=== PATIENT | female | born 1945 | race Caucasian/White ===

== ENCOUNTER 2018-02-12 05:00 | Inpatient (IN) | payer MEDICARE, OTHER ==
[2018-02-11 13:59] LABS: APPEARANCE CLEAR (CLEAR); BACTERIA FEW /hpf (NONE SEEN); BILIRUBIN NEGATIVE (NEGATIVE); COLOR YELLOW (YELLOW); EPITHELIAL CELLS 0-5 /hpf (0-5); GLUCOSE NEGATIVE (NEGATIVE); KETONE NEGATIVE (NEGATIVE); MUCUS <1+ /lpf (NONE SEEN); NITRITE NEGATIVE (NEGATIVE); PROTEIN NEGATIVE (NEGATIVE); RED CELLS - URINE 0-5 /hpf (0-5); UROBILINOGEN NORMAL (NORMAL); WHITE CELLS - URINE RARE /hpf (0-5)
[2018-02-11 14:26] LABS: HEMATOCRIT 38.6 % (36.0-48.0); HEMOGLOBIN 12.9 g/dL (12-16); MCH 33.3 pg (26.0-34.0); MCHC 33.4 g/dL (31.0-37.0); MCV 99.7 fL (80.0-100.0); MEAN PLATELET VOLUME 9.9 fL (7.4-10.4); RBC 3.87 10x6/uL (4.00-5.40); RDW 12.9 % (11.5-14.5); WBC 5.8 10x3/uL (4.8-10.8)
[2018-02-11 14:39] LABS: APTT 33.1 SECONDS (22.8-39.4); INR 0.96 (0.85-1.17); PROTIME 12.3 SECONDS (11.6-15.0)
[2018-02-11 14:41] LABS: ALBUMIN 3.7 g/dL (3.4-5.0); ANION GAP 9.4 mmol/L (8-16); BILIRUBIN - TOTAL 0.34 mg/dL (0.2-1.3); CALCIUM 9.5 mg/dL (8.5-10.1); CARBON DIOXIDE 31.3 mmol/L (21.0-32.0); CREATININE - SERUM 0.8 mg/dL (0.6-1.3); POTASSIUM - SERUM 3.7 mmol/L (3.5-5.1); PROTEIN - SERUM 7.9 g/dL (6.4-8.2)
[~2018-02-12] VITALS: Ht 165.1 cm; Wt 57.0 kg
[2018-02-12] VITALS (49 sets, daily range): BP systolic 90–143; BP diastolic 39–83; BMI 21.3; BMI 22.7
--- NOTE | ~2018-02-12 | HP ---
PATIENT: CONSTANTINE KIRK MEDICAL RECORD: [id number] ACCOUNT: [id number] LOCATION:[facility].CV05 : 43 ADMISSION DATE: 02/12/18 PCP: ANGELA MONROY MD HISTORY AND PHYSICAL EXAMINATION CONSTANTINE Yeh (72yo, F) ID# [id number]. Date/Time02/11/2018 10:98RYTKZ59 1945Service Dept.NPP_[facility] ClinicProviderEDMILENA MONROY MDInsuranceMed Primary: [place]) Insurance # : [id number] Referring Provider Name : SHAHBAZ HARDING Employer Name : RETIRED Med Secondary: [employer] (MEDICARE SUPPLEMENT) Insurance # : [id number] Employer Name : RETIRED Prescription: ESI1 - Member is eligible. Chief Complaint Lung mass Patient's Care Team Referring Provider (): SHAHBAZ HARDING: [address] [place] [address], , [facility] [address] (ERX): [address], [place] [address], , Vitals BP:132/68 sitting R arm 02/11/2018 10:09 amHR:78/reg 02/11/2018 10:09 amHt:5 ft 1 in 02/11/2018 10:07 amWt:132 lbs 02/11/2018 10:07 amBMI:24.9 02/11/2018 10:07 amAllergies Reviewed Allergies CODEINE: HallucinationsIRONLATEXTRAMADOL: ItchingVIBERZIZENPEPMedications Reviewed Medications AMOX/K CLAV TAB 875MGAMOXICILLIN/CLAVULANATE VGKMNDPEJ60/28/15 filledCatalystHealthSolutionsamoxicillin 875 mg-potassium clavulanate 125 mg tablet TK 1 T PO BID08/13/14 filledsurescriptsazithromycin 250 mg tablet TK 2 TS PO AT ONCE TODAY THEN TK 1 T PO ONCE D FOR 4 DAYS10/22/13 filledsurescriptsAZITHROMYCIN TAB 734YT7510/22/13 filledCatalystHealthSolutionsCalciu m 600 + D(3)12/26/11 enteredAlethiea Lucascefdinir 300 mg capsule TK ONE C PO Q 12 H FOR 10 DAYS02/27/13 filledsurescriptsCHOLESTYRAM POW 6UHHNUDYOMLUOXBYB18/18/15 filledCatalystHealthSolutionscholestyramine (with sugar) 4 gram oral powder MIX 4 GRAMS WITH LIQUID AND DRINK BID. DO NOT TAKE WITHIN 2 HOURS OF OTHER LGDRJKUGRKE52/18/18 filledMEDCOciprofloxacin 500 mg tablet TK 1 T PO BID07/17/14 filledsurescriptsCIPROFLOXACN TAB 476ST0309/18/13 filledCatalystHealthSolutionsCIPROFLOXACN TAB 500MGCIPROFLOXACIN HCL07/17/14 filledCatalystHealthSolutionsCLARITHROMYC TAB 500MG ERCLARITHROMYCIN ER12/31/13 filledCatalystHealthSolutionsclarithromycin ER 500 mg tablet,extended release 24 hr TK 2 TS PO D009/02/14 filledsurescriptsCLARITHROMYCIN ER 500 MG AM435509/02/14 filledCatalystHealthSolutionsclindamycin HCl 300 mg /22/13 filledCh[facility] Centerus Numbrs AG SystemsCLOPIDOGREL TAB 67NFKTNZJHZYVZO64/29/15 filled[facility]Health[facility]olutions doxycycline hyclate 100 mg kgkeeq54/22/13 filledCh[facility] CenterThe [facility] Laboratory SystemsESTRACE VAG CRE 0.1MG/GIKGEYKHF04/02/15 filledCatalystHealthSolutionsestradiol 1 mg tablet TK 1 T PO D.11/12/12 filledsurescriptsfamotidine 20 mg tablet TK 1 T PO BID UTD1 filledMEDCOfluocinonide 0.05 % topical eejswmrb12/22/18 filledMEDCOHYDROCO/APAP TAB 10-036CF5608/26/13 filledCatalystHealthSolutionsHYDROcod one 10 mg-acetaminophen 325 mg tablet TK 1 T PO Q 4 H PRN P008/26/13 filledsurescriptsLORAZEPAM TAB 0.5MG05/29/13 filledCatalystHealthSolutionsmeloxicam 7.5 mg yfetal17/12/15 HISTORY AND PHYSICAL [id number] CONSTANTINE KIRK filledsurescriptsmethocarbamol 500 mg /04/15 filledsurescriptsmethylPREDNIS olone 4 mg tablets in a dose pack TK UTD10/20/14 filledsurescriptsmetroNIDAZOLE 500 mg /24/13 filledArgus Health SystemsMOVIPREP SOL11/13/13 filledCatalystHealthSolutionsMoviPrep 100 gram-7.5 gram-2.691 gram oral powder packet UTD11/13/13 filledsurescriptsMucinex D 60 mg-600 mg tablet,extended release TK 1 T PO BID Q TWELVE H008/13/14 filledsurescriptsNITROFUR MAC CAP 100MGNITROFURANTOIN OMTOZIEWTVZNL81/02/15 filledCatalystHealthSolutionsNITROFUR MAC CAP 50MGNITROFURANTOIN CAWBVYLMDICWH95/02/15 filledCatalystHealthSolutionsNITRO FURANTN CAP 100MGNITROFURANTOIN OLMGNZDWDJL14/23/14 filledCatalystHealthSolutionsNI TROFURANTN CAP 100MGNITROFURANTOIN MONOHYDRATE/EYEMQPKLRDLNV14/09/15 filledCatalystHealthSolutionsnitrofurantoin macrocrystal 50 mg wrikhor61/24/15 filledsurescriptsnitrofurantoin monohydrate/macrocrystals 100 mg capsule TK ONE C TWICE DAILY FOR 7 DAYS03/27/14 filledsurescriptspantoprazole 40 mg tablet,delayed release TK 1 T PO QAM07/30/13 filledsurescriptsPANTOPRAZOLE TAB 40MG07/30/13 filledCatalystHealthSolutionsphenazopyridine 200 mg tablet TK 1 T PO QID FOR 3 DAYS03/10/14 filledsurescriptsPoly Hist Forte (doxylamine) 7.5 mg-10 mg fsuatq51/17/15 filledsurescriptsPREMARIN TAB 0.3MG011/27/13 filledCatalystHealthSolutionsPREMARIN TAB 0.0DUGGNRKQEM52/26/14 filledCatalystHealthSolutionsPREMARIN TAB 0.45MG12/11/13 filledCatalystHealthSolutionsPREMARIN TAB 0.8YAIVPCXXSV33/01/15 filledCatalystHealthSolutionsPREMARIN 0.9 MG TABS09/19/14 filledCatalystHealthSolutionsPremarin 0.3 mg tablet TK 1 T PO QD02/11/14 filledsurescriptsPremarin 0.45 mg tablet TK 1 T PO D012/11/13 filledsurescriptsPremarin 0.625 mg /09/12 filledMEDCOPremarin 0.9 mg tablet TK 1 T PO QD01/08/18 filledMEDCOpromethazine 25 mg tablet TK 1 T PO Q 4 TO 6 H PRN N008/26/13 filledsurescriptsPROMETHAZINE TAB 25MG08/26/13 filledCatalystHealthSolutionsSERTRALINE TAB 50MG12/16/13 filledCatalystHealthSolutionssertraline 25 mg /13/12 filledMEDCOsertraline 50 mg tablet TK 1 T PO D012/16/13 filledsurescriptsSMZ/TMP DS TAB 800-2351410/28/13 filledCatalystHealthSolutionssulfamethoxazole 800 mg-trimethoprim 160 mg tablet TK 1 T PO BID10/28/13 filledsurescriptstraMADol 50 mg /05/12 filledMEDCOXanax 0.25 mg tablet Take 1 tablet(s) 3 times a day by oral route.12/26/11 enteredAlethiea LucasProblems Reviewed Problems Coronary arteriosclerosis Gastroesophageal reflux disease Ludwig's esophagus Colitis Biliary dyskinesia Degenerative joint disease involving multiple joints Disorder of rotator cuff Family History Reviewed Family History Father- Cerebrovascular accident - previously recorded as StrokeMother- Problem - lukemiaSocial History Reviewed Social History General HISTORY AND PHYSICAL [id number] CONSTANTINE KIRK 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 Marital status: Exercise level: None Smoking Status: Former smoker (Notes: quit 10 years ago) Alcohol intake: None Is blood transfusion acceptable in an emergency?: Y (Notes: Only from family member) Tobacco-years of use: 30 Surgical History Reviewed Surgical History Cholecystectomy, laparoscopic - 08/26/2013 Shoulder arthroscopy with rotator cuff repair - 12/28/2011 Other - 1969 - Hysterectomy Other - 1967 - Ulcers 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 History (not configured) Past Medical History Reviewed Past Medical History Coronary Artery Disease: Y GERD: Y Heart Disease: Y Joint Pain or Swelling: Y Pain in legs when walking: Y Documents for Discussion Discussed the following documents: PET, SKULL BASE TO MID-THIGH - 01/04/18 SURGICAL PATHOLOGY STUDY - 12/20/17 Notes - LUNG BX BIOPSY, LUNG, CT GUIDANCE (PROC) - 12/20/17 CT, ANGIOGRAM, CHEST, W/WO CONTRAST - 12/10/17 ONCOLOGY CONSULT NOTE - 01/25/18 ONCOLOGY CONSULT NOTE - 01/21/18 ONCOLOGY CONSULT NOTE - [facility] - 01/15/18 ONCOLOGY CONSULT NOTE - [facility] - 01/15/18 Screening None recorded. HPI Lungs/Pleura Mass or Nodule Reported by patient. 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 She reports no fever, no night sweats, no significant weight gain, no signifi cant weight loss, and no exercise intolerance. She reports no dry eyes, no irritation, and no vision change. She reports no difficulty hearing and no ear pain. She reports no frequent nosebleeds and no nose/sinus problems. She reports no sore throat, no b l eeding gums, no snoring, no dry mouth, no mouth ulcers, no oral abnormalities, and no teeth problems. She reports no jugular vein distension and no swollen glands. She reports no chest pain, no arm pain on exertion, no shortness of breath when walking, no shortness of breath when lying down, no palpitations, and no known heart murmur. She reports no cough, no wheezing, no shortness of breath, and no coughing up blood. She HISTORY AND PHYSICAL [id number] YELENACONSTANTINE reports no incontinence, no difficulty urinating, no hematuria, and no increased freq u ency. She reports no muscle aches, no muscle weakness, no arthralgias/joint pain, no back pain, and no swelling in the extremities. She reports no abnormal mole, no jaundice, and no rashes. She reports no loss of consciousness, no weakness, no numbness, n o seizures, no dizziness, and no headaches. She reports no depression, no sleep disturbances, feeling safe in relationship, and no alcohol abuse. She reports no fatigue. She reports no swollen glands and no bruising. She reports no runny nose, no sinus pre ssure, no itching, no hives, and no frequent sneezing. ROS as noted in the HPI Physical Exam Patient is a 72-year-old female. Constitutional: General Appearance well nourished and developed and healthy-appearing. Level of Distress NAD. Ambulation ambulating normally. Cardiovascular: Apical Impulse not displaced or no thrill. Heart Auscultation normal s1 and s2; no murmurs, rubs, or gallops; and RRR. Arterial Pulses no abdominal aorta bruits, femoral bruits, or popliteal bruits and 2+ bilateral, carotid 2+ bilateral, femoral 2+ bilateral, popliteal 2+ bilateral, and dorsalis pedis 2+ bilateral. Edema no edema or varicosities. Lungs: Repiratory Effort no dyspnea. Percussion no hyperresonance or dullness or flatness. Auscultation no wheezing, rhonchi, or ral es / crackles and breathing sounds normal, good air movement, and CTA except as noted. Abdomen: Bowl Sounds normal. Inspection and Palpation no tenderness, guarding, masses, or rebound tenderness and soft and non-distended. Liver non-tender and no hepatomegaly. Spleen non-tender and no splenomegaly. Hernia none palpable. Musculoskeletal System: Gait And Stance normal gait and stance. Digits and Nails normal nails and no cyanosis. Neurologic: Cranial Nerves grossly intact. Reflexes DTRs 2+ bilaterally throughout. Sensation grossly intact. Lymph Nodes: Lymph Nodes no cervical LAD, supraclavicular LAD, axillary LAD, or inguinal LAD. Eyes: Lids and Conjunctivae no discharge or pallor and non-injected. Pupils PERRLA. Cornea grossly intact. EOM EOMI. Lens clear. Sclera non-icteric. Neck: Neck no masses, enlarged lymph nodes, or carotid bruits and supple and trachea midline. Thyroid no enlargement or nodules and non-tender. Skin: Inspection and Palpation no rash, lesions, ulcers, jaundice, or abnormal nevi. Assessment / Plan Non-small cell carcinoma left upper lobe 1. Non-small cell lung cancer - Left C34.90: Malignant neoplasm of unspecified part of unspecified bronchus or lung C34.12: Malignant neoplasm of upper lobe, left bronchus or lung Discussion Notes Agree with Dr. Cabrera she would benefit from left upper lobe resection. HISTORY AND PHYSICAL [id number] YELENACONSTANTINE ROME She has no symptoms of cardiac disease she had a stent in 2009 She has no cough shortness of breath and has no physical limitations concerning exercise I have discussed her disease process with her and her in detail as well as the alternative methods of treatment. We discussed left upper lobe resection including the expected benefits and risk which include bleeding, infection, stroke, , and the imponderables .She understands all of the above and wishes to proceed with planned surgery. ANGELA MONROY MD CC: [id number] DICTATION DATE: 02/11/18 1000 LAP MACHINE TENDER: HUNG 02/13/18 1242 ADM IN [facility] [address] [place] [address]
--- NOTE | ~2018-02-12 | OP ---
PATIENT NAME: CONSTANTINE KIRK MEDICAL RECORD: [id number] :41 LOCATION:[facility] D.CV05 ADMISSION DATE:02/12/18 SURGEON: ANGELA ADAMS MD DATE OF OPERATION: 02/12/2018 SURGEON: Angela Adams MD ANESTHESIA: General endotracheal, Graham Savage MD OPERATIONS PERFORMED: 1. Left upper lobectomy. 2. Left radical mediastinal lymphadenectomy. 3. Flexible fiberoptic bronchoscopy. PREOPERATIVE DIAGNOSIS: Non-small cell carcinoma, left upper lobe. POSTOPERATIVE DIAGNOSIS: Non-small cell carcinoma, left upper lobe. INDICATION FOR OPERATION: Non-small cell carcinoma, left upper lobe. FINDINGS AT OPERATION: Non-small cell carcinoma, left upper lobe. ESTIMATED BLOOD LOSS: 150 mL. DESCRIPTION OF PROCEDURE: After informed consent, adequate preoperative medication, and evaluation, the patient was brought to the operating room and placed on the table in supine position. After induction of general endotracheal anesthesia, application of appropriate monitoring devices, placement of a double lumen tube, and flexible fiberoptic bronchoscopy, the patient was turned in a right lateral decubitus position. Left chest was prepped and draped in sterile field utilizing Betadine scrub, alcohol, and Betadine solution. Betadine-impregnated drape was also used. No endobronchial lesions were noted on bronchoscopy. A posterolateral thoracotomy incision was made on the left. Dissection was carried down to the fascia. Hemostasis was maintained with electrocautery. The fifth interspace was opened and the lung was examined. There was no other pathology other than the lesion in the superior segment of the lingula. The upper lobe had a couple of small adhesions that were lysed with electrocautery. The hilum was then circumferentially incised. Dissection was carried down to the pulmonary artery and the pulmonary vein. The pulmonary vein was isolated. The pulmonary artery branches to the upper lobe were isolated and divided utilizing 2-0 silk and 6-0 Prolene suture ligatures. There were 4 vessels going to the upper lobe that were taken sequentially. Attention was then turned towards the pulmonary vein. This was divided utilizing an Endo vascular PENG stapler. Attention was then turned towards the fissures. The fissures were incomplete. The fissures were partially developed anteriorly and posteriorly utilizing an Endo-PENG stapler. Dissection was then carried around the upper lobe bronchus and this was surrounded with a TA 34.8 stapler and closed. Testing demonstrated good ventilation of the lower lobe. This was fired and the bronchus was divided. Additional dissection was carried out. There were 2 arteries to the lingula. These were also divided with 2-0 silk and 6-0 Prolene suture ligatures. The fissure was then completed and the specimen sent to pathology. The patient then underwent a radical mediastinal lymphadenectomy. There were no nodes at level 6. There were nodes at level 5, 4, and 8 that were OPERATIVE REPORT [id number] CONSTANTINE KIRK sent separately. There were also nodes at level 10, sent separately. Chest was irrigated with copious amounts of antibiotic solution and normal saline. Two #28 chest tubes were placed, one anteriorly and superiorly, one posteriorly and inferiorly. Chest was again irrigated. Instrument count and sponge count were correct times 2. Chest was closed in layers utilizing #2 Vicryl pericostal sutures, #1 Vicryl on the latissimus, 2-0 Vicryl on the subcutaneous tissue, and skin was approximated with 3-0 subcuticular Vicryl. Sterile dressings were applied. The patient tolerated the procedure well and was transferred to a supine position. The patient then underwent flexible fiberoptic bronchoscopy. There were no endobronchial lesions and good closure of the upper lobe bronchus. The patient was then awakened, extubated, and taken to the cardiovascular ICU in satisfactory condition. TRANSINT:[id number] Voice Confirmation ID: [id number] DOCUMENT ID: [id number] ANGELA ADAMS MD CC: [id number] DICTATION DATE: 02/12/18 1238 QUICK MIXER OPERATOR: 02/12/18 1407 ADM IN [facility] [address] [place] [address]
--- NOTE | ~2018-02-12 | MORECARE ---
CASE MANAGEMENT DISCHARGE SUMMARY PATIENT: CONSTANTINE KIRK UNIT: [id number] ADM DATE: 02/12/18 AGE: 72 : 43 SEX: F ROOM/BED: [facility] AUTHOR: JORI MIRAMONTES PHYSICIAN: REFERRING PHYSICIAN: ANGELA MONROY MD DATE OF SERVICE: 02/15/18 Discharge Plan Patient Name: CONSTANTINE KIRK [facility] [facility] 1945 Planned Disposition: Home Anticipated Discharge Date: Discharge Date: Expected LOS: Initial Reviewer: [email or web address] Initial Review Date: 02/12/2018 Generated: 02/15/18 6:25 pm Patient Name: CONSTANTINE KIRK Page 30518 at 1726 All edits/amendments must be made on the electronic document DICTATION DATE: 02/15/181724 PHP LAMP DEVELOPER: HUNG 02/15/181724 RPT#: [id number] DC DATE: STATUS: ADM IN [facility] [address] [place] [address] END OF REPORT
--- NOTE | ~2018-02-12 | MORECARE ---
CASE MANAGEMENT DISCHARGE SUMMARY PATIENT: CONSTANTINE KIRK UNIT: [id number] ADM DATE: 02/12/18 AGE: 72 : 43 SEX: F [facility] AUTHOR: FE,DOC PHYSICIAN: REFERRING PHYSICIAN: ANGELA MONROY MD DATE OF SERVICE: 02/19/18 Discharge Plan Patient Name: CONSTANTINE KIRK Facility: [facility]:[place] : 1945 Planned Disposition: Home Anticipated Discharge Date: Discharge Date: 02/19/2018 Expected LOS: Initial Reviewer: [email or web address] Initial Review Date: 02/12/2018 Generated: 02/19/18 11:13 am Comments DCP- Discharge Planning Updated by [email or web address]: Adrianna Markham on 02/19/18 9:[address] Patient Name: CONSTANTINE KIRK Encounter No: [id number] : 1945 Primary Insurance: MEDICARE A & B Anticipated DC Date: Planned Disposition: Home External Planned Provider: : CARRIE WADE @ [facility] DCP follow-up note: Patient and family in agreement with discharge plan. No changes to plan. Case management will follow and assist as needed. Adrianna Markham DCP- Discharge Planning Updated by [email or web address]: Adrianna Markham on 02/15/18 4:[address] Patient Name: CONSTANTINE KIRK Admission Status: Elective Accout number: [id number] Admission Date: 02-12-2018 : 1945 Admission Diagnosis:MALIGNANT NEOPLASM OF UPPER LOBE, LEFT BRONCHUS OR LUNG Attending: ANGELA MONROY Current LOS: 3 Anticipated DC Date: Planned Disposition: Home Primary Insurance: MEDICARE A & B Discharge Planning Comments: CM met with patient at bedside after obtaining verbal consent. Patient states she plans on returning home after discharge with her . Patient states she will have family transport him home via private vehicle. Patient denies any discharge needs at this time. CM will continue to follow and assist as needed for discharge planning / needs. Marketing Project Lead: Adrianna Markham DCPIA - Discharge Planning Initial Assessment Updated by [email or web address]: Adrianna Markham on 02/15/18 5:27 pm * Is the patient Alert and Oriented? Yes * How many steps to enter\exit or inside your home? * PCP [facility] * Pharmacy [facility] * Preadmission Environment Home with Family * ADLs Independent * Equipment None * List name and contact numbers for known caregivers / representatives who currently or will assist patient after discharge: BHUMI KIRK [phone] * Verbal permission to speak to the caregivers and representatives has been obtained from the patient. Yes * Community resources currently utilized None * Additional services required to return to the preadmission environment? No * Can the patient safely return to the preadmission environment? Yes * Has this patient been hospitalized within the prior 30 days at any hospital? No Coverage Notice Reviewer: [email or web address] Juliano Markham Notice Issued Date-Time: 02/19/2018 9:50 Notice Type: IM Discharge Notice Notice Delivered To: Patient Relationship to Patient: Self Hydroelectric Component Machinist Name: Delivery Method: HAND - Hand Delivered Ashley Days: Prior Verbal Notification: Recipient Understood Notice: Yes Recipient Signature: Yes Med Rec Note Co-signed by Attending: Coverage Notice Comment: Last DP export: 02/15/18 4:34 Patient Name: CONSTANTINE KIRK Page 38437 at 1013 All edits/amendments must be made on the electronic document DICTATION DATE: 02/19/18 1013 ACCESS CONTROL SPECIALIST: HUNG 02/19/18 1013 RPT#: [id number] DC DATE:02/19/18 STATUS: DIS IN [facility] [address] [place] [address] END OF REPORT
--- NOTE | ~2018-02-12 | MORECARE ---
CASE MANAGEMENT DISCHARGE SUMMARY PATIENT: CONSTANTINE KIRK UNIT: [id number] ADM DATE: 02/12/18 AGE: 72 : 43 SEX: F [facility] AUTHOR: FE,DOC PHYSICIAN: REFERRING PHYSICIAN: ANGELA MONROY MD DATE OF SERVICE: 02/15/18 Discharge Plan Patient Name: CONSTANTINE KIRK Facility: [facility]:[place] : 1945 Planned Disposition: Home Anticipated Discharge Date: Discharge Date: Expected LOS: Initial Reviewer: [email or web address] Initial Review Date: 02/12/2018 Generated: 02/15/18 6:34 pm Comments DCP- Discharge Planning Updated by [email or web address]: Adrianna Markham on 02/15/18 4:[address] Patient Name: CONSTANTINE KIRK Admission Status: Elective Accout number: [id number] Admission Date: 02-12-2018 : 1945 Admission Diagnosis:MALIGNANT NEOPLASM OF UPPER LOBE, LEFT BRONCHUS OR LUNG Attending: ANGELA MONROY Current LOS: 3 Anticipated DC Date: Planned Disposition: Home Primary Insurance: MEDICARE A & B Discharge Planning Comments: CM met with patient at bedside after obtaining verbal consent. Patient states she plans on returning home after discharge with her . Patient states she will have family transport him home via private vehicle. Patient denies any discharge needs at this time. CM will continue to follow and assist as needed for discharge planning / needs. Hearing Aid Repairer: Adrianna Markham DCPIA - Discharge Planning Initial Assessment Updated by [id number]: Adrianna Markham on 02/15/18 5:27 pm * Is the patient Alert and Oriented? Yes * How many steps to enter\exit or inside your home? * PCP [facility] * Pharmacy [facility] * Preadmission Environment Home with Family * ADLs Independent * Equipment None * List name and contact numbers for known caregivers / representatives who currently or will assist patient after discharge: BHUMI KIRK [phone] * Verbal permission to speak to the caregivers and representatives has been obtained from the patient. Yes * Community resources currently utilized None * Additional services required to return to the preadmission environment? No * Can the patient safely return to the preadmission environment? Yes * Has this patient been hospitalized within the prior 30 days at any hospital? No Last DP export: 02/15/18 4:25 Patient Name: CONSTANTINE KIRK Page 40853 at 1735 All edits/amendments must be made on the electronic document DICTATION DATE: 02/15/181733 SCULPTURE CONSERVATOR: HUNG 02/15/181733 RPT#: [id number] DC DATE: STATUS: ADM IN [facility] [address] [place] [address] END OF REPORT
[~2018-02-12 05:00] MED LIST: ASPIRIN EC81 M1 PO; BIOTIN5 MG PO; CALCIUM 600 +1 EAC3 PO; HYDROCODONE-APA1 TAB PO; OSTEO BI-FLEX1 EAC1 PO; PEPCID AC20 MG PO; PHENERGAN25 M1 PO; PLAVIX75 MG PO; PREMARIN0.3 MG PO; PREMARIN0.9 MG PO; TUMERIC PO; VITAMIN D31000 UNIT; VITAMIN D31000 UNIT PO; ZOLOFT50 MG PO
[2018-02-13] VITALS (71 sets, daily range): BP systolic 90–132; BP diastolic 38–62; Ht 165.1 cm; Wt 57.0 kg
[2018-02-13 06:20] LABS: HEMATOCRIT 32.9 % (36.0-48.0); HEMOGLOBIN 10.9 g/dL (12-16); MCH 32.7 pg (26.0-34.0); MCHC 33.1 g/dL (31.0-37.0); MCV 98.8 fL (80.0-100.0); MEAN PLATELET VOLUME 10.1 fL (7.4-10.4); RBC 3.33 10x6/uL (4.00-5.40); RDW 13.1 % (11.5-14.5)
[2018-02-13 06:21] LABS: WBC 11.4 10x3/uL (4.8-10.8)
[2018-02-13 06:46] LABS: BILIRUBIN - TOTAL 0.45 mg/dL (0.2-1.3); CALCIUM 7.5 mg/dL (8.5-10.1); CARBON DIOXIDE 26.3 mmol/L (21.0-32.0); CREATININE - SERUM 0.8 mg/dL (0.6-1.3); PROTEIN - SERUM 6.1 g/dL (6.4-8.2)
[2018-02-13 06:53] LABS: ALBUMIN 2.5 g/dL (3.4-5.0); ANION GAP 12.1 mmol/L (8-16)
[2018-02-13 06:54] LABS: POTASSIUM - SERUM 4.4 mmol/L (3.5-5.1)
[2018-02-14] VITALS (26 sets, daily range): BP systolic 105–136; BP diastolic 43–66
[2018-02-14 06:23] LABS: HEMATOCRIT 30.9 % (36.0-48.0); HEMOGLOBIN 9.9 g/dL (12-16); MCH 32.5 pg (26.0-34.0); MCV 101.3 fL (80.0-100.0); MEAN PLATELET VOLUME 9.9 fL (7.4-10.4); RBC 3.05 10x6/uL (4.00-5.40); RDW 13.2 % (11.5-14.5)
[2018-02-14 07:09] LABS: ALBUMIN 2.3 g/dL (3.4-5.0); ALKALINE PHOSPHATASE 39 U/L (46-116); ALT (SGPT) 17 U/L (10-68); BILIRUBIN - TOTAL 0.42 mg/dL (0.2-1.3); CALCIUM 7.7 mg/dL (8.5-10.1); CARBON DIOXIDE 28.1 mmol/L (21.0-32.0); CHLORIDE - SERUM 101 mmol/L (98-107); CREATININE - SERUM 0.6 mg/dL (0.6-1.3); GLUCOSE 99 mg/dL (74-106); POTASSIUM - SERUM 3.9 mmol/L (3.5-5.1); PROTEIN - SERUM 5.8 g/dL (6.4-8.2); SODIUM 136 mmol/L (136-145); eGFR NON AFRICAN AMERICAN > 90 mL/min (90-120)
[2018-02-14 07:10] LABS: CALC OSMOLALITY 269 mosm/kg (275-300); UREA NITROGEN 8 mg/dL (7-18)
[2018-02-15] VITALS (24 sets, daily range): BP systolic 106–142; BP diastolic 44–86
[2018-02-15 06:14] LABS: HEMATOCRIT 31.2 % (36.0-48.0); HEMOGLOBIN 10.1 g/dL (12-16); MCH 32.5 pg (26.0-34.0); MCHC 32.4 g/dL (31.0-37.0); MCV 100.3 fL (80.0-100.0); MEAN PLATELET VOLUME 10.1 fL (7.4-10.4); RBC 3.11 10x6/uL (4.00-5.40); RDW 12.9 % (11.5-14.5)
[2018-02-15 06:33] LABS: ALBUMIN 2.3 g/dL (3.4-5.0); ALKALINE PHOSPHATASE 42 U/L (46-116); ALT (SGPT) 13 U/L (10-68); CALC OSMOLALITY 271 mosm/kg (275-300); CALCIUM 7.9 mg/dL (8.5-10.1); CARBON DIOXIDE 29.5 mmol/L (21.0-32.0); CHLORIDE - SERUM 102 mmol/L (98-107); CREATININE - SERUM 0.6 mg/dL (0.6-1.3); GLUCOSE 103 mg/dL (74-106); POTASSIUM - SERUM 3.8 mmol/L (3.5-5.1); PROTEIN - SERUM 6.1 g/dL (6.4-8.2); SODIUM 137 mmol/L (136-145); UREA NITROGEN 6 mg/dL (7-18); eGFR NON AFRICAN AMERICAN > 90 mL/min (90-120)
[2018-02-16] VITALS (25 sets, daily range): BP systolic 108–141; BP diastolic 46–63
[2018-02-17] VITALS (24 sets, daily range): BP systolic 96–137; BP diastolic 42–71
[2018-02-18] VITALS (24 sets, daily range): BP systolic 123–157; BP diastolic 50–76
[2018-02-18 07:02] LABS: BASOPHILS 0.2 % (0-2); CALC OSMOLALITY 277 mosm/kg (275-300); CALCIUM 8.2 mg/dL (8.5-10.1); CARBON DIOXIDE 28.6 mmol/L (21.0-32.0); CHLORIDE - SERUM 102 mmol/L (98-107); CREATININE - SERUM 0.6 mg/dL (0.6-1.3); EOSINOPHILS 3.3 % (0-7); GLUCOSE 105 mg/dL (74-106); HEMATOCRIT 32.2 % (36.0-48.0); HEMOGLOBIN 10.6 g/dL (12-16); LYMPHOCYTES 24.3 % (15-50); MCH 32.6 pg (26.0-34.0); MCHC 32.9 g/dL (31.0-37.0); MCV 99.1 fL (80.0-100.0); MEAN PLATELET VOLUME 9.9 fL (7.4-10.4); MONOCYTES 11.3 % (2-11); NEUTROPHILS 59.9 % (40-80); POTASSIUM - SERUM 3.5 mmol/L (3.5-5.1); RBC 3.25 10x6/uL (4.00-5.40); RDW 12.4 % (11.5-14.5); SODIUM 140 mmol/L (136-145); UREA NITROGEN 9 mg/dL (7-18); WBC 5.2 10x3/uL (4.8-10.8); eGFR NON AFRICAN AMERICAN > 90 mL/min (90-120)
[2018-02-18 07:05] LABS: PLATELET COUNT 310 10x3/uL (130-400)
[2018-02-19] VITALS (10 sets, daily range): BP systolic 137–157; BP diastolic 71–84
[2018-02-19 06:37] LABS: BASOPHILS 0.1 % (0-2); EOSINOPHILS 3.2 % (0-7); HEMOGLOBIN 10.9 g/dL (12-16); IMMATURE GRANULOCYTES 0.9 % (0-5); LYMPHOCYTES 18.7 % (15-50); MCH 32.6 pg (26.0-34.0); MCV 98.8 fL (80.0-100.0); MEAN PLATELET VOLUME 9.5 fL (7.4-10.4); MONOCYTES 12.2 % (2-11); NEUTROPHILS 64.9 % (40-80); PLATELET COUNT 337 10x3/uL (130-400); RBC 3.34 10x6/uL (4.00-5.40); RDW 12.5 % (11.5-14.5)
[2018-02-19 07:31] LABS: CALC OSMOLALITY 276 mosm/kg (275-300); CALCIUM 8.2 mg/dL (8.5-10.1); CARBON DIOXIDE 28.8 mmol/L (21.0-32.0); CHLORIDE - SERUM 101 mmol/L (98-107); CREATININE - SERUM 0.6 mg/dL (0.6-1.3); GLUCOSE 122 mg/dL (74-106); POTASSIUM - SERUM 3.4 mmol/L (3.5-5.1); SODIUM 139 mmol/L (136-145); UREA NITROGEN 8 mg/dL (7-18); eGFR NON AFRICAN AMERICAN > 90 mL/min (90-120)
[2018-02-19] MEDS ORDERED: LOPRESSOR25 MG PO (08:28)
[2018-02-19] MEDS ORDERED: MUCINEX600 MG PO (08:29)
[2018-02-19] MEDS ORDERED: ASPIRIN EC81 M1 PO (08:31)
[2018-02-19] MEDS ORDERED: HYDROCODON-ACE1 EAC7 PO (08:36)
== END 2018-02-19 09:45 | disposition home or self-care (01) | DRG 164 ==
LOC: D.CVICU 05:00 → D.SDCHOLD 05:00 → D.CVICU 08:44
PROVIDERS: Internal Medicine Cardiovascular Disease; Thoracic Surgery (Cardiothoracic Vascular Surgery)
PROC: 0BJ08ZZ Inspection of Tracheobronchial Tree, Via Natural or Artificial Opening Endoscopic (ICD-10-PCS; 2018-02-12)
PROC: 0BTG0ZZ Resection of Left Upper Lung Lobe, Open Approach (ICD-10-PCS; principal; 2018-02-12 07:30)
PROC: 07T70ZZ Resection of Thorax Lymphatic, Open Approach (ICD-10-PCS; 2018-02-12 07:30)
DX: C34.12 Malignant neoplasm of upper lobe, left bronchus or lung (principal); J95.812 Postprocedural air leak; I25.10 Atherosclerotic heart disease of native coronary artery without angina pectoris; K21.9 Gastro-esophageal reflux disease without esophagitis; K22.70 Barrett's esophagus without dysplasia; K82.8 Other specified diseases of gallbladder; K52.9 Noninfective gastroenteritis and colitis, unspecified; Z87.891 Personal history of nicotine dependence

== ENCOUNTER → 2018-03-07 09:02 | Outpatient (CLI) | payer MEDICARE, OTHER ==
[2018-02-13 12:29] VITALS: BMI 22.9
[~2018-03-07 09:02] MED LIST changes: +HYDROCODON-ACE1 EAC7 PO; +LOPRESSOR25 MG PO; +MUCINEX600 MG PO
== END | disposition home or self-care (01) ==
LOC: D.RAD 09:02
DX: C34.90 Malignant neoplasm of unspecified part of unspecified bronchus or lung (principal)

== ENCOUNTER 2018-09-17 12:21 | Emergency (ER) | payer MEDICARE, OTHER ==
[~2018-09-17] VITALS: Ht 165.1 cm; Wt 56.4 kg
[2018-09-17 12:35] VITALS: Ht 165.1 cm; Wt 56.4 kg
[2018-09-17] MEDS ORDERED: ASCORBIC ACID500 MG PO (12:37)
[2018-09-17 13:29] LABS: BASOPHILS 0.2 % (0-2); EOSINOPHILS 3.5 % (0-7); HEMOGLOBIN 12.2 g/dL (12-16); LYMPHOCYTES 32.4 % (15-50); MCH 31.1 pg (26.0-34.0); MCHC 33.9 g/dL (31.0-37.0); MCV 91.8 fL (80.0-100.0); NEUTROPHILS 49.9 % (40-80); RBC 3.92 10x6/uL (4.00-5.40); WBC 4.6 10x3/uL (4.8-10.8)
[2018-09-17 13:33] LABS: PLATELET COUNT 248 10x3/uL (130-400)
[2018-09-17 13:37] LABS: ALBUMIN 3.7 g/dL (3.4-5.0); ALKALINE PHOSPHATASE 75 U/L (46-116); ALT (SGPT) 23 U/L (10-68); BILIRUBIN - TOTAL 0.32 mg/dL (0.2-1.3); CALC OSMOLALITY 282 mosm/kg (275-300); CALCIUM 9.2 mg/dL (8.5-10.1); CARBON DIOXIDE 30.5 mmol/L (21.0-32.0); CHLORIDE - SERUM 106 mmol/L (98-107); CREATININE - SERUM 0.8 mg/dL (0.6-1.3); GLUCOSE 86 mg/dL (74-106); PROTEIN - SERUM 7.3 g/dL (6.4-8.2); SODIUM 142 mmol/L (136-145); UREA NITROGEN 14 mg/dL (7-18); eGFR NON AFRICAN AMERICAN 74 mL/min (90-120)
[2018-09-17 13:48] LABS: CKMB 0.9 U/L (0.0-3.6); CREATINE KINASE 63 UL (21-215); TROPONIN-I < 0.017 ng/mL (0.000-0.060)
[2018-09-17 15:21] LABS: APPEARANCE CLEAR (CLEAR); BILIRUBIN NEGATIVE (NEGATIVE); COLOR YELLOW (YELLOW); GLUCOSE NEGATIVE (NEGATIVE); KETONE NEGATIVE (NEGATIVE); NITRITE NEGATIVE (NEGATIVE); PROTEIN NEGATIVE (NEGATIVE); UROBILINOGEN NORMAL (NORMAL)
[2018-09-17 15:22] LABS: BACTERIA FEW /hpf (NONE SEEN); RED CELLS - URINE 0-5 /hpf (0-5); WHITE CELLS - URINE 0-5 /hpf (0-5)
[2018-09-17] MEDS ORDERED: KEFLEX500 MG PO (16:13)
[2018-09-17 16:55] VITALS: BP 124/85
== END 2018-09-17 17:22 | disposition home or self-care (01) ==
LOC: D.ER 12:21
PROVIDERS: Family Medicine
DX: N39.0 Urinary tract infection, site not specified (principal); R55 Syncope and collapse; R53.1 Weakness

== ENCOUNTER → 2018-10-16 10:03 | Outpatient (CLI) | payer MEDICARE, OTHER ==
[2018-09-17 12:35] VITALS: BMI 20.6
[~2018-10-16 10:03] MED LIST changes: +ASCORBIC ACID500 MG PO; +KEFLEX500 MG PO
--- NOTE | 2018-10-22 09:53 | ST ---
PATIENT:CONSTANTINE KIRK MEDICAL RECORD: [id number] SEX: F LOCATION:[facility] ORDER #: ADMISSION DATE: 10/16/18 AGE OF PATIENT: 73 REFERRING PHYSICIAN: INTERPRETING PHYSICIAN: LEONARDA GARCIA MD DATE OF SERVICE: 10/16/2018 INDICATION: Angina, coronary artery disease, and shortness of breath. She was exercised on standard Lexiscan protocol with 33 mCi of sestamibi injected at peak stress, 11 mCi used previously for rest images. FINDINGS: Gated SPECT reveals a preserved ejection fraction at 76% with good wall motioning and thickening and brightening throughout all segments. SPECT imaging Cardiolite was used as myocardial perfusion agent. There is reversibility anteriorly and apically. This includes the basal, mid apical, anterior segments as well as the apex itself. The degree of myocardium of reversibility is mild to moderate. The amount of myocardium involved is moderate. OVERALL IMPRESSION: 1. This is an intermediate risk abnormal nuclear stress test, reversibility anteroapically. 2. Gated SPECT reveals preserved ejection fraction greater than 70% in this patient with ongoing symptomatology, the current scan does suggest presence of hemodynamically significant coronary artery disease. Due to the amount of myocardium at risk, we would proceed with coronary angiography as followup study. TRANSINT:[id number] Voice Confirmation ID: [id number] DOCUMENT ID: [id number] LEONARDA GARCIA MD at 0953 CC: TODD CONNELL [id number] DICTATION DATE: 10/18/18 1328 NURSE INSTRUCTOR: 10/19/18 0052 DEP CLI 10/16/18 [place] [id number] [place] [id number]
--- NOTE | 2018-10-22 09:53 | EC ---
PATIENT:CONSTANTINE KIRK DATE OF SERVICE: 10/16/18 SEX: F MEDICAL RECORD: [id number] DATE OF : 41 [facility] AGE OF PATIENT: 73 ADMISSION DATE: 10/16/18 REFERRING PHYSICIAN: INTERPRETING PHYSICIAN: LEONARDA ZABALA MD ECHOCARDIOGRAM REPORT ECHO CHARGES 4 ECHO COMPLETE Date: 10/16/18 CLINICAL DIAGNOSIS: CAD/DYSPNEA ON EXERTION ECHOCARDIOGRAPHIC MEASUREMENTS (adult normal given) AC root (d.<3.7cm) 3.1 cm LV Septum d (<1.2 cm> 1.2 cm Valve Excursion 1.4 cm LV Septum (systole) 1.4 cm Left Atria (s.<4.0cm> 3.0 cm LVPW d(<1.2cm) 1.2 cm RV (d.<2.3cm) 3.0 cm LVPW (sytole) 1.4 cm LV diastole(<5.6CM) 4.9 cm MV E-F(>70mm/sec) cm LV systole 3.4 cm LVOT Diameter 1.8 cm MV exc.(>10mm) 1.4 cm Est.ejection fraction (50-75%) % DOPPLER: LVIT cm/sec A 113 cm/sec E 104 cm/sec LA cm/sec RVSP 54 mmHg LVOT 120 cm/sec AOP1/2T m/s Asc. Ao 153 cm/sec RVOT 51 cm/sec RA cm/sec PA 103 cm/sec AV Gradient Peak 9.30 mmHg AV Mean 4.60 mmHg AV Area 2.3 cm MV Gradient Peak 5.50 mmHg MV Mean 2.59 mmHg MV Area cm COMMENTS: Denture Contour Wire Specialist: Michele DEMPSEY Radio Tester: 1 Dr. Zabala TAPE# PACS Pericardial Effusion N DATE OF SERVICE: 10/16/2018 ECHOCARDIOGRAM DATE OF SERVICE: 10/16/2018 FINDINGS: 1. Left ventricular chamber size is within normal limits. Left ventricular systolic function is normal. Overall ejection fraction 60% to 65%. 2. Left atrium, right atrium, and right ventricle chamber sizes are within ECHOCARDIOGRAM REPORT [id number] CONSTANTINE KIRK normal limits. 3. Valvular structures have normal structure and motion. 4. Doppler interrogation reveals [id number] mitral regurgitation, mild tricuspid regurgitation, no other valvular insufficiency or stenosis. Pulmonary systolic pressure is elevated estimated at 54 mmHg. 5. No evidence of pericardial effusion or left ventricular thrombus. TRANSINT:[id number] Voice Confirmation ID: [id number] DOCUMENT ID: [id number] LEONARDA ZABALA MD at 0953 CC: [id number] DICTATION DATE: 10/17/18 1249 CUSTOMER SERVICE CONSULTANT: 10/17/18 1311 DEP CLI 10/16/18 [place] [id number]
== END | disposition home or self-care (01) ==
LOC: D.HCCARDIO 10:03
PROVIDERS: ATTEND Internal Medicine Interventional Cardiology
DX: I25.10 Atherosclerotic heart disease of native coronary artery without angina pectoris (principal)

== ENCOUNTER 2018-11-04 09:22 | Outpatient (CLI) | payer MEDICARE, OTHER ==
[~2018-11-04] VITALS: Ht 154.9 cm; Wt 55.9 kg
--- NOTE | ~2018-11-04 | HEMODYNAMI ---
PATIENT:CONSTANTINE KIRK MEDICAL RECORD: [id number] : 41 LOCATION:D[facility] ADMISSION DATE: 11/04/18 Generatedon:11/04/201813:15 Patient name: CONSTANTINE KIRK Patient #: [id number] : 1945 Date of study: 11/04/2018 Page: Of Hemodynamic Procedure Report Patient Data Patient Demographics Procedure consent was obtained First Name: CONSTANTINE Gender: Female Last Name: YELENA : 1945 [facility] Initial: LATRICIA Age: 73 year(s) Patient #: [id number] Race: SSN: [id number] Additional ID: [id number] Contact details [address]: [address] [place] [address] State: [place] City: [place] Zip code: [address] Past Medical History Performed procedures and imaging results Date Procedure Procedure Results Comments 10/16/2018 Stress testing Indeterminant with SPECT MPI Admission Admission Data Admission Date: 11/04/2018 Admission Time: 9:22 Arrival Date: 11/04/2018 Arrival Time: 0:00 Admit Source: Other Insurance Payor: Private health insurance, Medicare [facility] #: [id number] Height (in.): 60.63 BSA: 1.52 (m2) Height (cm.): 154 BMI: 23.19 (kg/m2) Weight (lbs.): 121.25 Weight (kg.): 55 Lab Results Lab Result Date: 11/04/2018 Lab Result Time: 9:40 Biochemistry Name Units Result Min Max BUN mg/dl 15 --(--*-)-- 7 18 Creatinine mg/dl 0.8 --(-*--)-- 0.6 1.3 CBC Name Units Result Min Max Hematocrit % 38.4 *-(----)-- 42 54 Hemoglobin g/dl 13.1 -*(----)-- 13.5 17.5 Procedure Procedure Types Cath Procedure Diagnostic Procedure LHC LHC w/Coronaries PCI Procedure Coronary Stent Coronary Stent Initial Procedure Description Procedure Date Procedure Date: 11/04/2018 Procedure Start Time: 13:00 Procedure End Time: 13:14 Procedure Staff Name Function Fam Zabala MD Performing Physician Adalberto Shukla RT Monitor Juan Diego Rodríguez RT Scrub Twan Belcher RN Nurse Indication CAD Angina Dyspnea with exertion Procedure Data Cath Procedure Fluoroscopy Diagnostic fluoroscopy Total fluoroscopy Time: 2.4 time: 2.4 min min Diagnostic fluoroscopy Total fluoroscopy dose: 230 dose: 230 mGy mGy Contrast Material Contrast Material Type Amount (ml) Isovue 300 69 Entry Location Entry Primary Successful Side Size Upsize Upsize Entry Closure Lopes ccessful Closure Location (Fr) 1 (Fr) 2 (Fr) Remarks Device Remarks Radial Right 6 Fr Mechanical artery Short Compression Estimated blood loss: 20 ml Diagnostic catheters Device Type Used For End Catheter Placement DIAGNOSTIC Olcott 110cm 5 Procedure Fr catheter ([id number]) Procedure Medications Medication Administration Route Dosage Oxygen etCO2 Nasal cannula 2 l/min Lidocaine 2% added to field 20 Heparin Flush Bag added to field 2 bags (1000units/500ml NS) 0.9% NaCl I.V. 100 ml/hr Radial Cocktail I.A. 1 syringe (Verapamil 2mg/Nitro 400mcg/Heparin 1500units) Versed I.V. 1 mg Fentanyl I.V. 50 mcg Heparin Bolus I.V. 4000 units Integrilin (Bolus I.V. 5 ml 2mg/ml) Plavix P.O. 600 mg Versed I.V. 1 mg Fentanyl I.V. 50 mcg Hemodynamics Rest BSA: 1.52 (m2) HGB: 13.1 (g/dl) O2 Consumption: Estimated: 148.98 (ml/min) O2 Co nsumption indexed: Estimated:98.01 (ml/min/m) Heart Rate: 89 (bpm) Snapshots Pre Cath Intra NCS Post Cath Vital Signs Time Heart Resp SPO2 etCO2 NIBP (mmHg) Rhythm Pain Sedation Rate (ipm) (%) (mmHg) Status Level (bpm) 12:47:55 78 13 96 0 134/74(115) NSR 0 (11) 10(A) , No pain 12:52:07 86 15 96 38.9 127/79(100) NSR 0 (11) 10(A) , No pain 12:57:02 88 13 99 39.7 140/82(112) NSR 0 (11) 10(A) , No pain 13:01:18 91 14 99 32.2 135/72(90) NSR 0 (11) 10(A) , No pain 13:05:32 99 15 98 41.9 119/72(105) NSR 0 (11) 9(A) , No pain 13:09:42 101 13 99 31.4 128/72(100) NSR 0 (11) 10(A) , No pain 13:13:54 91 24 99 12.7 131/72(103) NSR 0 (11) 10(A) , No pain Medications Time Medication Route Dose Verified Delivered Reason Not es Effectiveness by by 12:51:48 Oxygen etCO2 2 l/min Fam Trent used for Nasal Vj Belcher RN procedure cannula 12:51:56 Lidocaine 2% added 20ml Fam Otto for local to vial Vj Zabala MD anesthetic field 12:52:04 Heparin Flush added 2 bags Fam Otto used for Bag to Vj Zabala MD procedure (1000units/500ml field NS) 12:52:12 0.9% NaCl I.V. 100 Fam Trent Per physician ml/hr Vj Belcher RN 12:52:23 Radial Cocktail I.A. 1 Fam Otto for (Verapamil syringe Vj Zabala MD vasodilation 2mg/Nitro 400mcg/Heparin 1500units) 13:00:35 Versed I.V. 1 mg Fam Trent for sedation Vj Belcher RN 13:00:41 Fentanyl I.V. 50 mcg Fam Trent for sedation jV Belhcer RN 13:04:33 Versed I.V. 1 mg Fam Fisherie for sedation Vj Belcher RN 13:04:38 Fentanyl I.V. 50 mcg Fam Trent for sedation Vj Belcher RN 13:05:39 Heparin Bolus I.V. 4000 Fam Trent for francie ified units Vj Belcher RN anticoagulation with dr zabala 13:07:30 Integrilin I.V. 5 ml Fam Trent for was td 5 (Bolus 2mg/ml) Vj eBlcher RN antiplatelet ml of therapy vial 13:11:47 Plavix P.O. 600 mg Fam Trent for Vj Belcher RN antiplatelet therapy Procedure Log Time Note 12:20:23 Twan Belcher RN sent for patient. Start room use. 12:40:45 Informed consent obtained and on chart 12:42:06 Admit Source: Other 12:42:20 Procedure Status Elective Heart Cath (OP). 12:42:28 Time tracking: Regular hours (M-F 7:00 - 5:00) 12:42:32 Plan of Care:Hemodynamics will remain stable., Cardiac rhythm will remain stable., Comfort level will be maintained., Respiratory function will remain adequate., Patient/ family verbilizes understanding of procedure., Procedure tolerated without complication., Recovers from procedure without complications.. 12:42:37 Patient received from Pre/Post Procedure Room to CCL 1 Alert and oriented. Tansferred to table in Supine position. 12:42:38 Warm blankets applied, and angie hugger turned on for patient comfort. 12:42:39 Correct patient and procedure confirmed by team. 12:42:39 ECG and BP/O2 sat monitors applied to patient. 12:42:40 Pre-procedure instructions explained to patient. 12:42:40 Pre-op teaching completed and patient verbalized understanding. 12:42:48 H&P Date Dictated: 10/03/2018 Within 30 days and on chart., H&P Addendum completed by physician on day of procedure. (MUST COMPLETE FOR ALL OUTPATIENTS). 12:43:05 ACC Patient presents with Unstable Angina CCS Anginal Class 4--Inability to carry out any physical activity w/o angina. Angina may occur at rest. 12:45:25 Patient Height : 60.63 inches 12:45:28 Patient Weight : 121.25 lbs 12:45:32 Insurance Payor : Private health insurance, Medicare 12:45:52 Arrival Date: 11/04/2018 12:00:00 AM 12:46:25 Lab Result : Creatinine 0.8 mg/dl 12:46:25 Lab Result : BUN 15 mg/dl 12:46:25 Lab Result : Hematocrit 38.4 % 12:46:25 Lab Result : Hemoglobin 13.1 g/dl 12:46:30 Diagnostic Cath Status : Elective 12:46:38 Indication : CAD 12:46:42 Indication : Angina 12:46:45 Indication : Dyspnea with exertion 12:46:53 ACCPatient has been prescribed/administered the following anti-anginal medication within the last 2 weeks: None 12:46:56 Vital chart was started 12:51:48 Oxygen 2 l/min etCO2 Nasal cannula was administered by Twan Belcher RN; used for procedure; 12:51:56 Lidocaine 2% 20ml vial added to field was administered by Fam Zabala MD; for local anesthetic; 12:52:04 Heparin Flush Bag (1000units/500ml NS) 2 bags added to field was administered by Fam Zabala MD; used for procedure; 12:52:12 0.9% NaCl 100 ml/hr I.V. was administered by Twan Belcher RN; Per physician; 12:52:23 Radial Cocktail (Verapamil 2mg/Nitro 400mcg/Heparin 1500units) 1 syringe I.A. was administered by Fam Zabala MD; for vasodilation; 12:56:59 Baseline sample Acquired. 12:57:03 Rhythm: sinus rhythm 12:57:06 Full Disclosure recording started 12:57:10 Family in waiting room. 12:57:12 Patient NPO since Midnight. 12:58:01 allergy: tramadol, codeine, latex, iron, VIBERZI, EFFEXOR 12:58:15 Is the patient allergic to Iodine/contrast media? No. 12:58:23 Is patient on blood thinner?No 12:58:35 Patient diabetic? No. 12:58:37 ----Pre-sedation anethsthesia assessment.---- 12:58:39 Previous problem with sedation/anesthesia? No ? 12:58:42 Snore? No 12:58:44 Sleep apnea? No 12:58:45 Deviated septum? No 12:58:47 Opens mouth fully? Yes 12:58:48 Sticks out tongue? Yes 12:58:51 Airway obstruction? No ? 12:58:53 Dentures? No ? 12:59:02 Pre procedure: right dorsailis pedis pulse 2+ Normal; easily identifiable; not easily obliterated 12:59:10 IV patent on arrival in left forearm with 0.9% NaCl at [facility]. 12:59:17 Right Radial & Right Groin area was prepped with chlora-prep and draped in sterile fashion 12:59:19 Alarms reviewed by RBecca NBecca 12:59:20 Sharps counted by scrub and verified by RBeccaN. 12:59:21 Physician arrived 12:59:21 --------ALL STOP TIME OUT------ 12:59:23 Final Timeout: patient, procedure, and site verified with staff and physician. All members of the team are in agreement. 12:59:26 Right Radial & Right Groin site verified by team. 12:59:31 Fire Safety Assessment: A--An alcohol-based skin anteseptic being used preoperatively., C--Open oxygen or nitrous oxide is being used., D--An ESU, laser, or fiber-optic light is being used. 12:59:50 2) 60-89 Mildly reduced kidney function, and other findings (as for stage 1) point to kidney disease. 13:00:10 Maximum allowable contrast dose (3.7 X eGFR X 0.75)205 ml. 13:00:15 Sedation plan: IV Moderate Sedation Medication:Versed, Fentanyl 13:00:29 Use device set Radial Dx or PCI 13:00:30 ACIST Syringe (11696) opened to sterile field. 13:00:31 Medline Cath Pack ([id number]) opened to sterile field. 13:00:32 Bag Decanter (2002S) opened to sterile field. 13:00:32 ACIST Hand Control (88381) opened to sterile field. 13:00:33 ACIST Manifold (14896) opened to sterile field. 13:00:34 Tegaderm 4 x 4 (1626W) opened to sterile field. 13:00:34 MBrace Wrist Support (533738498) opened to sterile field. 13:00:35 Versed 1 mg I.V. was administered by Twan Belcher RN; for sedation; 13:00:41 Fentanyl 50 mcg I.V. was administered by Twan Belcher RN; for sedation; 13:00:42 EMERALD Guide Wire (979-238) opened to sterile field. 13:00:43 SHEATH 6FR RAIN (6945228) opened to sterile field. 13:00:48 Procedure started. 13:00:54 Local anesthetic to right radial artery with Lidocaine 2% by Fam Zabala MD.INITIAL ACCESS ONLY 13:01:07 A 6 Fr Short sheath was inserted into the Right Radial artery 13:01:19 A DIAGNOSTIC Olcott 110cm 5 Fr catheter (284726) was advanced over the wire and used for Procedure. 13:02:10 LV gram done using TORRE 13:02:11 LV hemodynamics recorded. 13:02:17 EF : 65 % 13:02:29 RCA angiography performed. 13:03:58 LCA angiography performed. 13:04:00 Catheter removed. 13:04:02 Proceeding to intervention. 13:04:33 Versed 1 mg I.V. was administered by Twan Belcher RN; for sedation; 13:04:38 Fentanyl 50 mcg I.V. was administered by Twan Belcher RN; for sedation; 13:04:41 CHOICE PT Extra Support 182cm wire ([id number]) opened to sterile field. 13:04:42 GUIDE 6FR XBLAD 3.5 catheter (25856777) opened to sterile field. 13:04:43 INFLATOR Merit BasixCompak (DD4619) opened to sterile field. 13:04:54 PCI Cath status Elective 13:05:02 ACC Pre-intervention MARYANNE Flow is 3. 13:05:39 Heparin Bolus 4000 units I.V. was administered by Twan Belcher RN; for anticoagulation; verified with dr zabala 13:06:07 Pre PCI Site: [place] mLAD has 75% stenosis. 13:06:15 6 Fr XBLAD 3.5 guide catheter was inserted over the wire 13:06:21 CHOICE wire advanced. 13:06:30 Wire advanced across lesion. 13:07:29 Place stent Inflation Number: 1 A COBRA RX 2.5 X 24 Stent was prepped and advanced across the Mid LAD 75. The stent was deployed at 15 [place] for 0:10 (min:sec) 0. 13:07:30 Integrilin (Bolus 2mg/ml) 5 ml I.V. was administered by Twan Belcher RN; for antiplatelet therapy; wastd 5 ml of vial 13:08:48 TR BAND Standard (OOL79WMA) opened to sterile field. 13:08:57 Stent catheter was removed intact over wire. 13:08:58 Wire removed. 13:08:58 Guide catheter removed. 13:09:12 Sheath removed intact; hemostasis achieved with Mechanical Compression to the Right Radial artery. 13:09:15 Procedure ended.(Physican Out) 13:10:25 Procedure type changed to Cath procedure, Diagnostic procedure, LHC, LHC w/Coronaries, PCI procedure, Coronary Stent, Coronary Stent Initial 13:10:35 Fluoroscopy time 02.40 minutes. 13:10:40 Fluoroscopy dose: 230 mGy 13:10:40 Flurop Dose total: 230 13:10:47 Dose Area Product 9090 mGy/cm. 13:10:52 Contrast amount:Isovue 300 69ml. 13:10:55 Maximum allowable dose exceeded? No. 13:10:56 Sharps counted by scrub and verified by R.N. 13:11:00 TR band inflated with 11cc of air. 13:11:23 Insertion/operative site no bleeding no hematoma. 13:11:29 Post right radial artery:stable 13:11:37 Post procedure rhythm: sinus rhythm 13:11:42 Estimated blood loss: 20 ml 13:11:45 Patient needs reinforcement of post procedure teaching. 13:11:47 Plavix 600 mg P.O. was administered by Twan Belcher RN; for antiplatelet therapy; 13:11:47 Procedure and supply charges have been captured, reviewed, submitted and are correct. 13:14:42 ACT drawn and resulted at 400 seconds. (normal therapeutic range 180-240 seconds). 13:14:47 Vital chart was stopped 13:14:48 See physician's report for complete and final results. 13:14:50 Report given to Pre/Post Procedure Room. 13:14:54 Procedure ended. 13:14:54 Full Disclosure recording stopped 13:14:58 End room use (Document Last) Intervention Summary Intervention Notes Time ActionType Lesion and Equipment Action# Pressure Duration Attributes Used 13:07:29 Place stent Mid LAD COBRA RX 1 15 00:10 2.5 X 24 Stent Device Usage Item Name Manufacture Quantity Catalog Number Hospital Part Current Minimal Lot# / Charge Number Stock Stock Serial# Code ACIST Syringe Acist 1 01899 570812 571672 558019 20 (96840) Medical Systems RotoPop Medline Cath Medline 1 [id number] 064138 58554 509929 5 Pack ([id number]) Bag Decanter Microtek 1 863934 20615 214156 5 () Medical Inc. ACIST Hand Acist 1 84895 471942 538903 812966 5 Control Medical (86108) Systems Inc ACIST Manifold Acist 1 17802 130965 064323 561024 5 (66703) Medical Systems Inc Tegaderm 4 x 4 3M 1 1626W 209325 028373 141706 5 (1626W) MBrace Wrist Advanced 1 140-0250-00 738865 68180 718764 5 Support Vascular (108214212) Dynamics EMERALD Guide Cardinal 1 502-455 556737 173951 557660 5 Wire (502455) Health SHEATH 6FR Cardinal 1 6720883 999586 2914237 854082 5 RAIN (3663842) Health DIAGNOSTIC Terumo 1 40-5013 948541 300350 045918 5 Olcott 110cm 5 Fr catheter (573400) CHOICE PT [place] 1 [id number] 131337 493557 617934 5 Extra Support Scientific 182cm wire (2600676N7) GUIDE 6FR Cardinal 1 42247708 444551 917984 938856 10 XBLAD 3.5 Health catheter (54708575) INFLATOR Merit Merit 1 AZ0027 614385 255143 423223 15 [facility] Medical (SE8606) COBRA RX 2.5 X Celonova 1 012-63-03084 429537 [id number] 5598582 0 [id number] 24 stent Biosciences (541-02-71963) TR BAND Terumo 1 [id number] 397357 872187 759957 40 Standard ([id number]) Signature Audit [place] Stage Time Signature Unsigned Intra-Procedure 11/04/2018 Adalberto Shukla 1:15:27 PM RT(R) (CV) Signatures Performing Physician : Signature : Fam Zabala MD Date : Time : Monitor : Adalberto Shukla RT Signature : Date : Time : Nurse : Twan Belcher RN Signature : Date : Time : [address] [place] [address]
[2018-11-04 09:50] VITALS: BP 135/65; Ht 154.9 cm; Wt 55.9 kg
[2018-11-04 10:04] LABS: BASOPHILS 0.4 % (0-2); EOSINOPHILS 2.5 % (0-7); HEMATOCRIT 38.4 % (36.0-48.0); HEMOGLOBIN 13.1 g/dL (12-16); IMMATURE GRANULOCYTES 0.2 % (0-5); LYMPHOCYTES 35.8 % (15-50); MCH 31.5 pg (26.0-34.0); MCHC 34.1 g/dL (31.0-37.0); MCV 92.3 fL (80.0-100.0); MEAN PLATELET VOLUME 9.7 fL (7.4-10.4); NEUTROPHILS 51.1 % (40-80); PLATELET COUNT 271 10x3/uL (130-400); RBC 4.16 10x6/uL (4.00-5.40); RDW 13.1 % (11.5-14.5); WBC 5.2 10x3/uL (4.8-10.8)
[2018-11-04 10:10] LABS: ANION GAP 14.1 mmol/L (8-16); CALCIUM 9.2 mg/dL (8.5-10.1); CARBON DIOXIDE 26.1 mmol/L (21.0-32.0); CREATININE - SERUM 0.8 mg/dL (0.6-1.3); POTASSIUM - SERUM 4.2 mmol/L (3.5-5.1)
[2018-11-04 10:41] LABS: CHOL - HDL RATIO 3.3 ratio (2.3-4.1); LDL-HDL RATIO 1.8 ratio (1.5-3.5)
--- NOTE | 2018-11-04 13:20 | NUR ---
PATIENT ARRIVED TO ROOM 5, PLACED ON CM. VSS. RIGHT TR BAND IN PLACE, NO S/S OF BLEEDING OR HEMATOMA.
--- NOTE | 2018-11-04 13:35 | NUR ---
PATIENT RESTING, SPOUSE PRESENT AT BEDSIDE. VSS ON 2L NC. RIGHT TR BAND IN PLACE, NO S/S OF BLEEDING OR HEMATOMA. NO C/O PAIN, NUMBNESS, OR TINGLING. NO N/V. TOLERATING PO FLUIDS.
[2018-11-04] MEDS ORDERED: PLAVIX75 MG PO (13:36)
--- NOTE | 2018-11-04 14:05 | NUR ---
PATIENT RESTING, VSS ON 2L NC. RIGHT TR BAND IN PLACE, NO S/S OF BLEEDING OR HEMATOMA. NO C/O PAIN, NUMBNESS, OR TINGLING. SPOUSE AT BEDSIDE.
--- NOTE | 2018-11-04 14:35 | NUR ---
PATIENT RESTING, VSS ON 2L NC. RIGHT TR BAND IN PLACE, NO S/S OF BLEEDING OR HEMATOMA. NO C/O PAIN, NUMBNESS, OR TINGLING. SPOUSE PRESENT AT BEDSIDE.
--- NOTE | 2018-11-04 15:05 | NUR ---
PATIENT RESTING, VSS ON ROOM AIR. RIGHT TR BAND IN PLACE, NO S/S OF BLEEDING OR HEMATOMA. NO C/O PAIN, NUMBNESS, OR TINGLING. HEAD OF BED ELEVATED TO 30 DEGREES.
--- NOTE | 2018-11-04 15:35 | NUR ---
PATIENT AWAKE, VSS ON ROOM AIR. RIGHT TR BAND IN PLACE, NO S/S OF BLEEDING OR HEMATOMA. HEAD OF BED AT 90 DEGREES. PATIENT GIVEN SANDWICH AND SODA PER REQUEST, NO N/V. SPOUSE PRESENT AT BEDSIDE.
--- NOTE | 2018-11-04 16:05 | NUR ---
ASSISTED PATIENT WITH BEDPAN. VSS ON ROOM AIR. RIGHT TR BAND IN PLACE, NO S/S OF BLEEDING OR HEMATOMA. NO C/O PAIN, NUMBNESS, OR TINGLING. PATIENT COMPLETED SANDWICH AND SODA, NO N/V.
--- NOTE | 2018-11-04 16:15 | NUR ---
BEGIN AIR REMOVAL PROTOCOL FOR TR BAND, 3CC OF AIR REMOVED, NO S/S OF BLEEDING OR HEMATOMA. PATIENT VOIDED 300 ML CLEAR YELLOW URINE. VSS ON ROOM AIR.
--- NOTE | 2018-11-04 16:45 | NUR ---
3 ADD'L CC AIR REMOVED FROM TR BAND, NO BLEEDING NOTED. VSS. PT DENIES PAIN OR DISCOMFORT. CALL LIGHT IN REACH
--- NOTE | 2018-11-04 17:00 | NUR ---
DISCHARGE INSTRUCTIONS REVIEWED W PT, SHE VERBALIZED UNDERSTANDING.
--- NOTE | 2018-11-04 17:05 | NUR ---
IV REMOVED W CATH INTACT, MONITORS REMOVED FOR DISCHARGE. TR BAND IN PLACE, NO BLEEDING OR HEMATOMA NOTED
--- NOTE | 2018-11-04 17:10 | NUR ---
TR BAND AND REMAINING AIR REMOVED W/O BLEEDING NOTED. 2X2 AND TEGADERM DRESSING APPLIED. 1720 PT DISCHARGED VIA WC TO PRIVATE VEHICLE W AND ALL BELONGINGS
--- NOTE | 2018-11-05 12:04 | OP ---
PATIENT NAME: CONSTANTINE KIRK MEDICAL RECORD: [id number] :41 LOCATION:D.[facility] ADMISSION DATE: SURGEON: LEONARDA GARCIA MD DATE OF OPERATION: 11/04/2018 PROCEDURES: 1. PTCA stent LAD. 2. Left heart catheterization. 3. Selective coronary angiography. 4. Left ventriculogram. INDICATION: Angina, coronary artery disease, abnormal nuclear stress test, anteroapical ischemia. PROCEDURE IN DETAIL: After informed consent was obtained and after a detailed description of risks, benefits as well as alternative therapies, the patient elected to proceed with angiogram and angioplasty. The right radial area was prepped and draped in normal sterile fashion. Right radial artery was cannulated via modified Seldinger technique with placement of 6-Yoruba sheath. All catheters exchanged through this sheath. FINDINGS: The left ventriculogram was performed in standard 30-degree TORRE view, reveals good cardiac wall motion, ejection fraction is 60%. SELECTIVE CORONARY ANGIOGRAPHY: 1. Left main is with no angiographic disease. 2. Left anterior descending has 70% stenosis in the proximal mid vessel. This correlates with perfusion defect on nuclear stress test. 3. Left circumflex has moderate irregularities, but no flow-limiting stenosis. 4. Right coronary artery has moderate irregularities, but no flow-limiting stenosis. PTCA STENT OF THE LAD: The stent used was 2.5 x 24 mm Cobra. Result was 0% residual stenosis. OVERALL IMPRESSION: Successful percutaneous transluminal coronary angioplasty stent of the left anterior descending going from 70% initial stenosis with correlation to nuclear stress test to 0% residual stenosis. TRANSINT:[id number] Voice Confirmation ID: [id number] DOCUMENT ID: [id number] LEONARDA GARCIA MD at 1204 CC: [id number] DICTATION DATE: 11/04/18 1312 PIE FILLING MIXER: 11/04/18 1319 DEP CLI 11/04/18 [place] [id number] [place] [id number]
--- NOTE | 2018-11-05 12:04 | HP ---
PATIENT: CONSTANTINE KIRK MEDICAL RECORD: [id number] ACCOUNT: [id number] LOCATION:[facility] : 41 ADMISSION DATE: 11/04/18 PCP: TODD CONNELL HISTORY AND PHYSICAL EXAMINATION DIAGNOSES: 1. Progressive angina. 2. Coronary artery disease. 3. Previous percutaneous transluminal coronary angioplasty stent. 4. Abnormal nuclear stress test, high risk anteroapical ischemia. HISTORY OF PRESENT ILLNESS: Mrs. Kirk presented with anginal symptomatology, underwent nuclear stress testing revealing intermediate to high risk abnormal nuclear stress test, reversibility anteroapically that was relatively large amount of myocardium. She has continued to have angina, has continued to progress. She has past history of coronary artery disease and PTCA stent in the distant past. PHYSICAL EXAMINATION: CONSTITUTIONAL/GENERAL APPEARANCE: Well nourished, well developed, appears stated age. Level of distress, comfortable. EYES: Lids and conjunctivae noninjected. No discharge. No pallor. ENT: Lips within normal limit. No cyanosis. No pallor. NECK: Carotid arteries, bilateral normal upstroke. No bruits. No thrills. No jugular venous pressure or distention. CERVICAL LYMPH NODES: Nontender. Nonenlarged. THYROID: Not enlarged. No nodules. CARDIOVASCULAR: Precordial exam, nondisplaced. No heaves or pericardial thrills. Rate and rhythm, regular. Heart sounds, normal S1, normal S2. No S3, no gallop, no rub. Systolic murmur, not heard. Diastolic murmur, not heard. RESPIRATORY: Respiratory effort, unlabored. Normal curvature. No thoracic deformity. No chest wall tenderness. Percussion, resonant. Auscultation, clear. No wheezes, no rales, no rhonchi. ABDOMEN: Soft, nondistended, nontender. MUSCULOSKELETAL: No joint tenderness, normal gait, normal tone. SKIN: Warm and dry. OVERALL IMPRESSION: Continued angina in a progressive fashion in an unstable progressive fashion with abnormal nuclear stress test. We will proceed with coronary angiography. Further care depends upon findings of the angiography. TRANSINT:[id number] Voice Confirmation ID: [id number] DOCUMENT ID: [id number] LEONARDA GARCIA MD at 1204 CC: [id number] DICTATION DATE: 11/04/18 1256 [employer]: 11/04/18 1258 DEP CLI 11/04/18 [facility] [address] [place] [address]
== END 2018-11-04 17:20 | disposition home or self-care (01) ==
LOC: D.CATH 09:22
PROVIDERS: ATTEND Internal Medicine Interventional Cardiology
DX: I25.119 Atherosclerotic heart disease of native coronary artery with unspecified angina pectoris (principal); Z01.812 Encounter for preprocedural laboratory examination

== ENCOUNTER → 2019-02-20 17:57 | Outpatient (CLI) | payer MEDICARE, OTHER ==
[2018-11-04 09:50] VITALS: BMI 23.3
[2019-02-20 19:02] LABS: CHOL - HDL RATIO 3.4 ratio (2.3-4.1)
== END | disposition home or self-care (01) ==
LOC: D.LABREF 17:57
PROVIDERS: ATTEND Internal Medicine Interventional Cardiology
DX: E78.5 Hyperlipidemia, unspecified (principal)

== ENCOUNTER → 2019-05-12 18:04 | Outpatient (CLI) | payer MEDICARE, OTHER ==
[2018-11-04 09:50] VITALS: BMI 23.3
[2019-05-12 18:58] LABS: CHOL - HDL RATIO 3.1 ratio (2.3-4.1); LDL-HDL RATIO 1.8 ratio (1.5-3.5)
== END | disposition home or self-care (01) ==
LOC: D.LABREF 18:04
PROVIDERS: ATTEND Internal Medicine Interventional Cardiology
DX: E78.5 Hyperlipidemia, unspecified (principal)

== ENCOUNTER → 2019-08-28 08:40 | Outpatient (CLI) | payer MEDICARE, OTHER ==
[2018-11-04 09:50] VITALS: BMI 23.3
[2019-08-28 19:34] LABS: CHOL - HDL RATIO 1.8 ratio (2.3-4.1); LDL-HDL RATIO 0.6 ratio (1.5-3.5)
== END | disposition home or self-care (01) ==
LOC: D.LABREF 08:40
PROVIDERS: ATTEND Internal Medicine Cardiovascular Disease
DX: E78.5 Hyperlipidemia, unspecified (principal)